=== PATIENT | male | born 1940 | race Caucasian/White ===

== ENCOUNTER 2024-10-30 19:22 | Outpatient (CLI) | payer MEDICARE, OTHER, SELFPAY | END 2024-10-30 19:23 | disposition home or self-care (01) | LOC: AMB 10-31 11:51 | PROVIDERS: Visit Provider Family Medicine | DX: J18.9 Pneumonia, unspecified organism (principal); A41.9 Sepsis, unspecified organism | CPT/HCPCS: A0425; A0434 ==